=== PATIENT | male | born 1995 | race African-American/Black ===

== ENCOUNTER 2016-10-17 20:44 | Emergency (ER) | payer OTHER ==
[~2016-10-17] VITALS: Ht 172.7 cm; Wt 65.9 kg
[2016-10-17] MEDS ORDERED: GI COCKTAIL 50ML BTL(HYOSCYAMINE/MAALOX/LIDOCAINE VISCOUS)(1:3:1) PO ONE (22:15)
[2016-10-17] MEDS ORDERED: CARA1TAB6 PO (23:00)
[2016-10-17] MEDS ORDERED: SUCRALFATE 1 GM TAB PO ONE (23:00)
[2016-10-17 23:07] VITALS: BP 118/56
== END 2016-10-17 23:08 | disposition home or self-care (01) ==
LOC: M ED 20:44
DX: K29.00 Acute gastritis without bleeding (principal); Z87.891 Personal history of nicotine dependence

== ENCOUNTER 2017-03-17 21:53 | Emergency (ER) | payer OTHER ==
[2017-03-17] MEDS: CEPHALEXIN 500 MG CAP PO (23:30)
[2017-03-17] MEDS: IBUPROFEN 800 MG TAB PO (23:30)
== END 2017-03-18 00:44 | disposition home or self-care (01) ==
LOC: M ED 03-18 00:44
DX: S91.311A Laceration without foreign body, right foot, initial encounter (principal); W26.8XXA Contact with other sharp object(s), not elsewhere classified, initial encounter; Y92.098 Other place in other non-institutional residence as the place of occurrence of the external cause
CPT/HCPCS: 73630